=== PATIENT | female | born 1950 | race Caucasian/White ===

== ENCOUNTER 2019-12-05 22:28 | Emergency (ER) | payer OTHER ==
[~2019-12-05] VITALS: Ht 162.6 cm; Wt 81.2 kg
[~2019-12-05 22:28] MED LIST: ADVIL100 M2 PO; EMETROL; MELOXICAM7.5 MG PO; MULTIVITAMINS1 EAC7 PO; NORCO 5-325 TA1 EACH PO; PERCOCET 5-3251 EACH PO; ZOFRAN ODT4 MG PO
[2019-12-06 00:16] LABS: ABSOLUTE NEUTROPHILS 10.8 thou/uL (1.4-8.2); BASOPHILS 0.4 % (0.0-2.0); EOSINOPHILS 2.1 % (0.0-3.0); HEMATOCRIT 47.5 % (37.0-47.0); HEMOGLOBIN 15.7 gm/dL (12.0-15.0); LYMPHOCYTES 4.1 % (24.0-44.0); MCH 29.8 pg (26.0-34.0); MCV 90.3 fL (80.0-100.0); PLATELET COUNT 209 thou/uL (150-400); POLYS 91.4 % (36.0-66.0); RBC 5.26 mil/uL (4.20-5.00); RDW 13.5 % (10.5-14.5); WBC 11.8 thou/uL (4.0-11.0)
[2019-12-06 00:23] LABS: CALCIUM 9.3 mg/dL (8.5-10.1); CREATININE 0.7 mg/dL (0.6-1.0); POTASSIUM 3.8 mmol/L (3.5-5.1)
[2019-12-06] MEDS ORDERED: VISTARIL 25 MG25 M1 PO (02:23)
[2019-12-06 02:48] VITALS: BP 114/84
== END 2019-12-06 02:48 | disposition home or self-care (01) ==
LOC: ER 22:28
PROVIDERS: Emergency Medicine
DX: R21 Rash and other nonspecific skin eruption (principal); Z88.1 Allergy status to other antibiotic agents; Z88.6 Allergy status to analgesic agent; Z88.8 Allergy status to other drugs, medicaments and biological substances